=== PATIENT | female | born 1955 | race Caucasian/White ===

== ENCOUNTER 2016-12-01 18:51 | Emergency (ER) | payer BC ==
[2016-12-01] MEDS ORDERED: diphenhydrAMINE HCL 50 MG/ML VIAL IM ONE (19:35)
[2016-12-01] MEDS ORDERED: METHYLPREDNISOLONE ACETATE 80 MG/ML VIAL IM ONE (19:36)
[2016-12-01] MEDS ORDERED: diphenhydrAMINE HCL 50 MG/ML VIAL ONE ×2 (19:41→19:42)
[2016-12-01] MEDS ORDERED: METHYLPREDNISOLONE ACETATE 80 MG/ML VIAL ONE (19:41)
--- NOTE | 2016-12-01 19:47 | ERNOTE ---
Integumentary HPI - Narrative Date of Service: 12/01/16 - General Presenting Symptoms: rash Time Seen by Provider: 12/01/16 19:30 Source: patient Exam Limitations: no limitations - Immun/Allergies/Home Medications Immunizations: IMMUNIZATION HX Immunizations Up to Date Yes History of Influenza Vaccine No Allergies/Adverse Reactions: Allergies Allergy/AdvReac Type Severity Reaction Status Date / Time Penicillins AdvReac Verified 12/01/16 19:20 Home Medications: HOME MEDICATIONS Aspirin [Aspirin Chewable] 81 mg PO DAILY 05/04/13 [Last Taken Unknown] Calcium Carbonate [Caltrate 600] 600 mg PO DAILY 05/04/13 [Last Taken Unknown] Cranberry Fruit Concentrate [Cran-Max] 1,500 mg PO DAILY 05/04/13 [Last Taken Unknown] Esomeprazole Magnesium [Nexium] 40 mg PO BID 05/04/13 [Last Taken Unknown] Hydrochlorothiazide 25 mg PO DAILY 05/04/13 [Last Taken Unknown] Methylcellulose [Fiber] 500 mg PO DAILY 05/04/13 [Last Taken Unknown] Pindolol 30 mg PO BID 05/04/13 [Last Taken Unknown] Potassium Chloride 20 meq PO DAILY 05/04/13 [Last Taken Unknown] Rosuvastatin Calcium [Crestor] 10 mg PO HS 05/04/13 [Last Taken Unknown] Amlodipine Besylate 01/20/16 [Last Taken Unknown] Vitamin D 11/24/16 [Last Taken Unknown] predniSONE [Prednisone] 3 tab PO DAILY #9 tab 12/01/16 [Last Taken Unknown] - History of Present Illness Narrative: Pt. comes in with c/o rash on inner L arm and B ankles for 24 hours. pT. DENIES ANY FEVER, sob, cp, nvd, FEVER, RECENT ILLNESS OR INJURY. Pt. denies any alleviating factors, aggravating factors, but states taht she has been using hydrocortisone cream without relief. Review of Systems - Review of Systems Constitutional: Present: no symptoms reported. Absent: recent illness, fever, chills, weakness, fatigue, malaise EYE: Present: no symptoms reported ENT: Present: no symptoms reported Respiratory: Present: no symptoms reported. Absent: shortness of breath, cough , wheezing Cardiology: Present: no symptoms reported. Absent: chest pain, palpitations, edema Gastrointestinal/Abdominal: Present: no symptoms reported. Absent: nausea, vomiting, diarrhea Genitourinary: Present: no symptoms reported Musculoskeletal: Present: no symptoms reported. Absent: back pain, joint pain Skin: Present: rash - L inner forearma dn B ankles Neurological: Present: no symptoms reported. Absent: headache, dizziness/light- headedness, numbness, tingling All Other Systems: All systems neg except as marked - Patient's Past Medical History Patient History - Medical: GERD Patient History - Cardiac/Respiratory: Hypertension, Hyperlipidemia Patient History - Cancer: No Hx of Cancer Patient History - Surgical Procedures: Cholecystectomy - Social History Living Situations: home Psych History: No pertinent hx Smoking Status: Never smoker Alcohol Use: none Drug Use: none - Immunizations Immunizations Up to Date: Yes History of Influenza Vaccine: No Physical Exam - Physical Exam General Appearance: Present: wd/wn, alert, no apparent distress Head Exam: Present: normal inspection, no evidence of injury Eye Exam: Normal inspection: bilateral Ears, Nose, Throat: Present: normal ENT inspection, normal pharynx. Absent: pharyngeal erythema, pharyngeal swelling, tonsillar swelling Neck: Present: normal inspection, nontender. Absent: lymphadenopathy (R), lymphadenopathy (L) Respiratory: Present: no respiratory distress, normal breath sounds, no accessory muscle use, chest nontender, lungs clear Cardiovascular/Chest: Present: regular rate, rhythm, no murmur, normal peripheral pulses Back Exam: Present: normal inspection Extremity Exam: Present: non-tender, normal range of motion, no edema Neurological Exam: Present: alert, oriented, normal mood/affect, no motor/ sensory deficits Skin Exam: Present: skin rash - hive-like rash L inner forearm and B ankles ED Progress - Vital Signs Patient's Vital Signs:: I have reviewed the patient's vital signs. Vital Signs: Vital Signs 12/01/16 19:16 Temperature 36.8 C Pulse Rate 59 L Respiratory 18 Rate Blood Pressure 150/92 O2 Sat by Pulse 96 Oximetry - Progress/Reassessment Chief Complaint: Rash Departure Clinical Impression: Poison irina dermatitis - Departure Disposition: Home self-care Condition: Good Instructions: Poison Irina Dermatitis, [id number] Additional Instructions: Please follow up with primary provider in 2-3 days, wash all sheets, and take benadryl every six hours as able. Referrals: Frederic Key MD [Primary Care Provider] - Prescriptions: predniSONE [Prednisone] 3 tab PO DAILY #9 tab
[2016-12-01 19:56] VITALS: BP 146/61
== END 2016-12-01 19:55 | disposition home or self-care (01) ==
LOC: ER 18:51
DX: L23.7 Allergic contact dermatitis due to plants, except food (principal)